=== PATIENT | male | born 1995 | race African-American/Black ===

== ENCOUNTER 2024-10-06 08:23 | Emergency (ER) | payer SELFPAY ==
[2024-10-06] MEDS ORDERED: Ketorolac Tromethamine 30 MG (1 mL) VIAL ONE (10:12)
== END 2024-10-06 11:24 | disposition home or self-care (01) ==
LOC: ERS 08:23
DX: S46.911A Strain of unspecified muscle, fascia and tendon at shoulder and upper arm level, right arm, initial encounter (principal); Y35.811A Legal intervention involving manhandling, law enforcement official injured, initial encounter
CPT/HCPCS: 96372; 99283; J1885